=== PATIENT | female | born 1940 | race Caucasian/White ===

== ENCOUNTER 2018-10-22 11:46 | Observation (INO) ==
--- NOTE | 2018-10-22 12:22 | Emergency Department Note ---
Disposition Clinical Impression: Chest pain Qualifiers: Chest pain type: unspecified Qualified Code(s): R07.9 - Chest pain, unspecified Disposition: Admitted As Inpatient Condition: Good Time of Disposition: 18:00 General Adult HPI - General Chief complaint: ED Arrhythmia/Palpitations Stated complaint: weakness, LAUREEN, irregular HR Time Seen by Provider: 10/22/18 12:11 Source: patient Mode of arrival: ambulatory Limitations: no limitations Nursing Notes Reviewed: Yes Vital Signs Reviewed: Yes - History of Present Illness HPI Narrative: Patient history of diabetes as well as chronic kidney disease followed by nephrology with fistula to the right upper extremity that has not been used for dialysis as it is not needed at this point presents from nephrology for concern for underlying cardiac disease. Patient has had weakness and fatigue for the last 2 weeks. Patient has not had chest pain but has had exertional dyspnea as well as lightheadedness with standing. Patient has not had any previous cardiac workup. Patient has not had fevers or chills. Patient is had intermittent cough without sputum production. Symptoms occasionally were swelling flat. Patient has had no increased swelling of her lower extremities. Patient will undergo further evaluation for underlying cardiac as well as possible pulmonary pathology Pain Scale: 0 - Related Data Home Medications Medication Instructions Recorded Confirmed Clopidogrel [Plavix] 75 mg PO DAILY 05/09/16 10/22/18 Fluticasone Propionate Nasal 1 spray NS DAILY PRN 05/09/16 10/22/18 [Flonase] Loratadine [Allergy Relief] 10 mg PO DAILY PRN 05/09/16 10/22/18 Quinapril HCl [Accupril] 40 mg PO DAILY 05/09/16 10/22/18 glipiZIDE [Glucotrol] 5 mg PO BID 05/09/16 10/22/18 hydroCHLOROthiazide 25 mg PO DAILY 05/09/16 10/22/18 [Hydrochlorothiazide] Acetaminophen [Tylenol] 325 mg PO Q4H PRN 10/22/18 10/22/18 Albuterol Sulfate [Ventolin Hfa] 2 puff IH Q6H PRN 10/22/18 10/22/18 Calcitriol [Rocaltrol] 0.25 mcg PO DAILY 10/22/18 10/22/18 Cyanocobalamin (Vitamin B-12) 1,000 mcg PO DAILY 10/22/18 10/22/18 [Vitamin B12] Fenofibrate Nanocrystallized 160 mg PO DAILY 10/22/18 10/22/18 [Fenofibrate] Labetalol HCl 200 mg PO BID 10/22/18 10/22/18 hydrALAZINE [HydrALAZINE] 25 mg PO BID 10/22/18 10/22/18 Allergies Allergy/AdvReac Type Severity Reaction Status Date / Time No Known Allergies Allergy Verified 10/22/18 17:29 All systems ED: reviewed and negative except as stated. Review of Systems: As Per HPI Gastrointestinal: Denies: abdominal pain, nausea, vomiting Genitourinary: Denies: urgency, dysuria, frequency Musculoskeletal: Denies: back pain Integumentary: Denies: rash, abrasion Endocrine: Reports: fatigue Past Medical History - Past Medical History Medical history: Reports: non-contributory Surgical history: Reports: non-contributory - Social History Smoking Status: Never smoker Smokeless Tobacco Status: No Alcohol use: Reports: none Drug use: Reports: none Physical Exam General: Well appearing, nontoxic, no acute distress Head: Normocephalic Atraumatic Eyes: PERRL, EOMI ENT: Airway patent, no stridor Neck: supple, no meningismus Chest: Lungs clear to auscultation bilateral Cardiac: Regular rate and rhythm, no murmurs, rubs or gallops Abdomen: soft, nontender, nondistended; no guarding, rebound, or tenderness to percussion Musculoskeletal: Calves symmetric, nontender. Skin: No rash, normal skin tone. Fistula the right upper extremity thrill present Neuro: Alert and Oriented to person, place, and time; No obvious focal deficit. Course - Reevaluation(s) Reevaluation #1: Slight delay in laboratory values. Blood unable to be found in the lab. Patient will need CBC redrawn. 1507. I did discuss this with the patient. Patient is had exertional dyspnea that has been worsening over the last 2 weeks. Patient without specific chest pain and concern for chest pain equivalent as the patient's age and symptoms associated cardiomegaly on the MP and multiple risk factors has not had previous cardiac workup. Patient has been noted to be in bigeminy. Patient will need further telemetry as well as ACS rule out. Patient will be admitted for further investigation. Vital Signs Temperature 97.9 F 10/22/18 11:54 Pulse Rate 73 10/22/18 11:54 Respiratory Rate 18 10/22/18 11:54 Blood Pressure 108/62 10/22/18 11:54 O2 Sat by Pulse Oximetry 97 10/22/18 11:54 Temperature 97.9 F 10/22/18 20:04 Pulse Rate 88 10/22/18 20:04 Respiratory Rate 16 10/22/18 20:04 Blood Pressure 157/59 10/22/18 20:04 O2 Sat by Pulse Oximetry 96 10/22/18 20:04 Oxygen Delivery Oxygen Delivery Room Air Medical Decision Making - Lab Data Result diagrams: 10/22/18 15:05 10/22/18 12:25 Lab Results 10/22/18 10/22/18 10/22/18 Range/Units 12:25 12:25 12:25 WBC (4.3-11.1) K/mcL RBC (3.82-4.97) M/mcL Hgb (11.5-15.4) g/dL Hct (35.3-44.9) % MCV (83.0-100.0) fL MCH (28.0-33.3) pg MCHC (31.6-35.5) g/dL RDW (11.5-14.5) % Plt Count (140-400) K/mcL MPV (9.4-12.4) fL Immature Gran % (0-4) % Seg Neutrophils % % Lymphocytes % % Monocytes % % Eosinophils % % Basophils % % Neutrophils # (1.6-8.9) K/mcL Lymphocytes # (0.6-4.6) K/mcL Monocytes # (0.0-1.3) K/mcL Eosinophils # (0.0-0.6) K/mcL Basophils # (0.0-0.2) K/mcL Sodium 139 (136-145) mEq/L Potassium 4.3 (3.5-5.1) mEq/L Chloride 108 H (98-107) mEq/L Carbon Dioxide 21 L (23-29) mEq/L BUN 57 H (8-23) mg/dL Creatinine 3.12 H (0.60-1.20) mg/dL Est GFR ( Amer) 17 L (> 60) Est GFR (Non-Af Amer) 14 L (> 60) BUN/Creatinine Ratio 18 (6-26) Glucose 174 H (70-105) mg/dL Calculated Osmolality 308 H (280-300) Lactic Acid 0.8 (0.5-2.2) mmol/L Calcium 9.8 (8.6-10.3) mg/dL Troponin I < 0.03 (< 0.04) ng/mL B-Natriuretic Peptide 2267 H (Less than 100) pg/mL Urine Color (Yellow) Urine Clarity (Clear) Urine pH (5.0-8.0) pH Units Ur Specific [place] (1.010-1.025) Urine Protein (Neg-Trace) mg/dL Urine Glucose (UA) (Normal) mg/dL Urine Ketones (Negative) mg/dL Urine Blood (Negative) Urine Nitrite (Negative) Urine Bilirubin (Negative) Urine Urobilinogen (Normal) mg/dL Ur Leukocyte Esterase (Negative) Urine Microscopic RBC (0-3) per hpf Urine Microscopic WBC (0-3) per hpf Ur Squamous Epith Cells (None-Few) per lpf Urine Bacteria (None-Few) per hpf Hyaline Casts (None-Few) per lpf Ur Culture Indicated? (NO) Specimen Rejected 10/22/18 10/22/18 10/22/18 Range/Units 12:25 12:58 15:05 WBC 4.1 L (4.3-11.1) K/mcL RBC 3.04 L (3.82-4.97) M/mcL Hgb 9.7 L (11.5-15.4) g/dL Hct 30.4 L (35.3-44.9) % MCV 100.0 (83.0-100.0) fL MCH 31.9 (28.0-33.3) pg MCHC 31.9 (31.6-35.5) g/dL RDW 13.2 (11.5-14.5) % Plt Count 129 L (140-400) K/mcL MPV 11.0 (9.4-12.4) fL Immature Gran % 0.2 (0-4) % Seg Neutrophils % 54.8 % Lymphocytes % 26.9 % Monocytes % 13.7 % Eosinophils % 3.7 % Basophils % 0.7 % Neutrophils # 2.2 (1.6-8.9) K/mcL Lymphocytes # 1.1 (0.6-4.6) K/mcL Monocytes # 0.6 (0.0-1.3) K/mcL Eosinophils # 0.2 (0.0-0.6) K/mcL Basophils # 0.0 (0.0-0.2) K/mcL Sodium (136-145) mEq/L Potassium (3.5-5.1) mEq/L Chloride (98-107) mEq/L Carbon Dioxide (23-29) mEq/L BUN (8-23) mg/dL Creatinine (0.60-1.20) mg/dL Est GFR ( Amer) (> 60) Est GFR (Non-Af Amer) (> 60) BUN/Creatinine Ratio (6-26) Glucose (70-105) mg/dL Calculated Osmolality (280-300) Lactic Acid (0.5-2.2) mmol/L Calcium (8.6-10.3) mg/dL Troponin I (< 0.04) ng/mL B-Natriuretic Peptide (Less than 100) pg/mL Urine Color Yellow (Yellow) Urine Clarity Clear (Clear) Urine pH 6.0 (5.0-8.0) pH Units Ur Specific [place] 1.015 (1.010-1.025) Urine Protein 100 H (Neg-Trace) mg/dL Urine Glucose (UA) 100 H (Normal) mg/dL Urine Ketones Negative (Negative) mg/dL Urine Blood Negative (Negative) Urine Nitrite Negative (Negative) Urine Bilirubin Negative (Negative) Urine Urobilinogen Normal (Normal) mg/dL Ur Leukocyte Esterase Negative (Negative) Urine Microscopic RBC 0-3 (0-3) per hpf Urine Microscopic WBC 0-3 (0-3) per hpf Ur Squamous Epith Cells Few (None-Few) per lpf Urine Bacteria None Seen (None-Few) per hpf Hyaline Casts None Seen (None-Few) per lpf Ur Culture Indicated? NO (NO) Specimen Rejected Accident
[2018-10-22 13:01] LABS: BUN/Creatinine Ratio 18 (6-26); Blood Urea Nitrogen 57 mg/dL (8-23); Calcium 9.8 mg/dL (8.6-10.3); Carbon Dioxide 21 mEq/L (23-29); Chloride 108 mEq/L (98-107); Glucose 174 mg/dL (70-105); Osmolality,Calculated 308 (280-300); Potassium 4.3 mEq/L (3.5-5.1); Sodium 139 mEq/L (136-145); Troponin I < 0.03 ng/mL (< 0.04); eGFR For Non-African Americans 14 (> 60)
[2018-10-22 13:27] LABS: Bilirubin,Urine Negative (Negative); Blood,Urine Negative (Negative); Clarity,Urine Clear (Clear); Color,Urine Yellow (Yellow); Glucose,Urine (UA) 100 mg/dL (Normal); Ketones,Urine Negative (Negative); Leukocyte Esterase,Urine Negative (Negative); Nitrite,Urine Negative (Negative); Protein,Urine 100 mg/dL (Neg-Trace); Specific Gravity,Urine 1.015 (1.010-1.025); Urobilinogen,Urine Normal (Normal)
[2018-10-22 13:30] LABS: Bacteria,Urine None Seen per hpf (None-Few); Hyaline Casts,Urine None Seen per lpf (None-Few); RBC,Urine 0-3 per hpf (0-3); Squamous Epithelial Cell,Urine Few per lpf (None-Few); WBC,Urine 0-3 per hpf (0-3)
[2018-10-22 15:25] LABS: Basophils % 0.7 %; Eosinophils # 0.2 K/mcL (0.0-0.6); Eosinophils % 3.7 %; Hematocrit 30.4 % (35.3-44.9); Hemoglobin 9.7 g/dL (11.5-15.4); Immature Granulocytes % 0.2 % (0-4); Lymphocytes # 1.1 K/mcL (0.6-4.6); Lymphocytes % 26.9 %; Mean Corpuscular HGB Conc 31.9 g/dL (31.6-35.5); Mean Corpuscular Hemoglobin 31.9 pg (28.0-33.3); Monocytes # 0.6 K/mcL (0.0-1.3); Monocytes % 13.7 %; Neutrophils # 2.2 K/mcL (1.6-8.9); Platelet Count 129 K/mcL (140-400); Red Blood Count 3.04 M/mcL (3.82-4.97); Red Cell Distribution Width 13.2 % (11.5-14.5); Segmented Neutrophils % 54.8 %
[2018-10-22] MEDS ORDERED: *HR* Promethazine 25 MG/ML VIAL IVP PRN (15:55)
[2018-10-22] MEDS ORDERED: MOM Conc 10 ML UD.LIQ PO PRN (15:55)
[2018-10-22] MEDS ORDERED: Mag Hydrox/Al Hydrox/Simeth 30 ML UDC PO PRN (15:55)
[2018-10-22] MEDS ORDERED: traMADol 50 MG TABLET PO PRN (15:55)
[2018-10-22] MEDS ORDERED: Naloxone 0.4 MG/ML INJ IVP PRN (15:55)
[2018-10-22] MEDS ORDERED: Ondansetron 4 MG/2 ML VIAL IVP PRN (15:55)
[2018-10-22] MEDS ORDERED: Acetaminophen 325 MG TABLET PO PRN ×2 (15:55→20:04)
[2018-10-22] MEDS ORDERED: *HR* Dextrose 50 % in Water (Syg) 50 ML SYRINGE IVP PRN (15:59)
[2018-10-22] MEDS ORDERED: D5% in Water 1,000 ML IVC PRN (15:59)
[2018-10-22] MEDS ORDERED: Dextrose Gel 15 GM/37.5 ML TUBE PO PRN ×2 (15:59)
--- NOTE | 2018-10-22 16:55 | Internal Med History&Physical ---
Date of Encounter: 10/22/18 Time of Encounter: 16:53 Internal Medicine - H&P: HPI Admitted From: Home Plans for Post Hospital Care: Home History of present illness: Ms. Smith is a 78 year old female with history of diabetes as well as chronic kidney disease followed by nephrology with fistula to the right upper extremity that has not been used for dialysis as it is not needed at this point presents from nephrology for concerns of underlying cardiac disease. Patient has had weakness and fatigue for the last 2 weeks. Patient has not had chest pain but has had exertional dyspnea as well as lightheadedness with standing. Patient has not had any previous cardiac workup. Patient has not had fevers or chills. Patient is had intermittent cough without sputum production. Patient has had no increased swelling of her lower extremities. While in the ED, patient vital signs were stable, labs were significant for elevated BNP. Chest x-ray showed cardiomegaly with bilateral basilar atelectasis, no acute cardiac or pulmonary process. Patient will be admitted for further evaluation. CODE STATUS discussed with patient, she and her family wish to be full code. Past Med Surg Social Fam HX - Past Medical History Medical history: cancer, diabetes, hypertension, renal disease - Past Surgical History Surgical History: non-contributory - Social History Smoking Status: Never smoker Smokeless Tobacco Status: No Alcohol use: none Drug use: none Internal Medicine - H&P: Meds Albuterol Sulfate [Proair Hfa] 05/09/16 [History] Ciprofloxacin HCl [Cipro] 500 mg PO BID #14 tablet 05/09/16 [Rx] Clopidogrel [Plavix] 75 mg PO 05/09/16 [History] Ezetimibe [Zetia] 10 mg PO 05/09/16 [History] Fenofibrate [Lofibra] 160 mg PO 05/09/16 [History] Fluticasone Propionate Nasal [Flonase] 50 mcg NS 05/09/16 [History] Hydralazine HCl 25 mg PO 05/09/16 [History] Hydrocodone Bit/Homatrop Me-Br [Hydrocodone-Homatropine Syrup] 5 ml PO 05/09/16 [History] Labetalol HCl 200 mg PO 05/09/16 [History] Loratadine [Allergy Relief] 10 mg PO 05/09/16 [History] [place]-3 Fatty Acids [Fish Oil] 300 mg PO 05/09/16 [History] Omeprazole 05/09/16 [History] Phenazopyridine HCl [Pyridium] 200 mg PO TIDAC #6 tab 05/09/16 [Rx] Quinapril HCl [Accupril] 40 mg PO 05/09/16 [History] glipiZIDE [Glucotrol] 5 mg PO 05/09/16 [History] hydroCHLOROthiazide [Hydrochlorothiazide] 25 mg PO 05/09/16 [History] Allergy/AdvReac Type Severity Reaction Status Date / Time No Known Allergies Allergy Verified 05/09/16 18:49 All Systems PM: A 10-system review of systems was performed and is negative for pertinent findings except as documented above in the HPI. Review of systems: REVIEW OF SYSTEMS: CONSTITUTIONAL: No weight loss, fever, chills, see HPI. HEENT: Eyes: No visual loss, blurred vision, double vision or yellow sclerae. Ears, Nose, Throat: No hearing loss, sneezing, congestion, runny nose or sore throat. SKIN: No rash or itching. CARDIOVASCULAR: No chest pain, chest pressure or chest discomfort. No palpitations or edema. RESPIRATORY: see HPI. GASTROINTESTINAL: No anorexia, nausea, vomiting or diarrhea. No abdominal pain or blood. GENITOURINARY: No dysuria, urgency, or frequency. NEUROLOGICAL: No headache, dizziness, syncope, paralysis, ataxia, numbness or tingling in the extremities. No change in bowel or bladder control. MUSCULOSKELETAL: No muscle, back pain, joint pain or stiffness. HEMATOLOGIC: No anemia, bleeding or bruising. LYMPHATICS: No enlarged nodes. No history of splenectomy. PSYCHIATRIC: No history of depression or anxiety. ENDOCRINOLOGIC: No reports of sweating, cold or heat intolerance. No polyuria or polydipsia. - Constitutional Vitals: Temp Pulse Resp BP Pulse Ox 97.9 F 84 17 165/44 100 10/22/18 12:14 10/22/18 14:12 10/22/18 13:16 10/22/18 14:12 10/22/18 14:12 General appearance: Present: A&O X 3 Exam: PHYSICAL EXAMINATION: GENERAL APPEARANCE: The patient is alert, oriented and in no acute distress. HEENT: Head is normocephalic. The sinuses are nontender. Pupils are equal and reactive. The nares are patent. Oropharynx clear without lesions. NECK: Supple without lymphadenopathy. HEART: Regular rate and rhythm. LUNGS: bilateral crackles up to the mid-lung zone. ABDOMEN: Soft, nontender, nondistended with good bowel sounds heard. Inguinal area is normal. EXTREMITIES: Without cyanosis, clubbing or edema. NEUROLOGICAL: Gross nonfocal. SKIN: Warm and dry without any rash. Internal Med - H&P Results - Labs CBC & Chem 7: 10/22/18 15:05 10/22/18 12:25 Labs: Short CBC 10/22/18 Range/Units 15:05 WBC 4.1 L (4.3-11.1) K/mcL Hgb 9.7 L (11.5-15.4) g/dL Hct 30.4 L (35.3-44.9) % Plt Count 129 L (140-400) K/mcL Neutrophils # 2.2 (1.6-8.9) K/mcL BMP 10/22/18 12:25 Sodium 139 Potassium 4.3 Chloride 108 H Carbon Dioxide 21 L BUN 57 H Creatinine 3.12 H Glucose 174 H Calcium 9.8 Cardiac Enzymes 10/22/18 Range/Units 12:25 Troponin I < 0.03 (< 0.04) ng/mL Urine 10/22/18 Range/Units 12:58 Urine Color Yellow (Yellow) Urine Clarity Clear (Clear) Urine pH 6.0 (5.0-8.0) pH Units Ur Specific [place] 1.015 (1.010-1.025) Urine Protein 100 H (Neg-Trace) mg/dL Urine Glucose (UA) 100 H (Normal) mg/dL - Impressions ITS Impressions Chest X-Ray 10/22/18 12:10 IMPRESSION: Cardiomegaly, with left basilar atelectasis. No other acute cardiopulmonary process identified. D/ / Don Bruce MD / Don Bruce MD Interpreting Provider: Don Bruce MD - Assessment and Plan (1) Weakness Current Visit: Yes Status: Acute Assessment and plan: 78-year-old female with medical history of CKD stage IV, chronic anemia, diabetes mellitus, hypertension, COPD presented with two-week history of generalized weakness and dyspnea on exertion. I reviewed the medical record, she recently had some lab done which showed normal TSH, normal vitamin B12 level, slightly elevated folate level, normal iron study, hemoglobin A1c 5.6, and significantly elevated PTH level. Her lab upon admission showed a chronic anemia with baseline H/H, significantly elevated BMP, slightly above baseline creatinine. Her rn dialysis was concerned that the patient might have cardiac disease. Echocardiogram and a stress test ordered. May consult cardiology if indicated. (2) Dyspnea Current Visit: Yes Status: Acute Assessment and plan: Patient has history of COPD, she takes bronchodilators at home at a as needed basis. On physical exam, bilateral crackles can be appreciated up to the midlung zone. Labs showed significantly elevated BNP, chest x-ray showed cardiomegaly with bibasilar atelectasis. Patient has history of CKD stage IV, she currently still produces urine. She is on HCTZ at home. We will obtain echocardiogram in the morning. May consult nephrology to assist in diuresis if indicated. Qualifiers: Dyspnea type: dyspnea on exertion Qualified Code(s): R06.09 - Other forms of dyspnea (3) CKD (chronic kidney disease) stage 4, GFR 15-29 ml/min Current Visit: No Status: Chronic Assessment and plan: Cr slightly above baseline, will consult nephrology. (4) HTN (hypertension) Current Visit: No Status: Chronic Assessment and plan: Blood pressure was controlled currently, continue home medications. Qualifiers: Hypertension type: unspecified Qualified Code(s): I10 - Essential (primary) hypertension (5) Diabetes mellitus Current Visit: No Status: Chronic Assessment and plan: Blood glucose was well controlled, recent hemoglobin A1c 5.6, started patient on insulin sliding scale. 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 Qualifiers: COPD type: unspecified COPD Qualified Code(s): J44.9 - Chronic obstructive pulmonary disease, unspecified (7) Secondary hyperparathyroidism Current Visit: No Status: Chronic Assessment and plan: Renal following. (8) Chronic anemia Current Visit: No Status: Chronic Assessment and plan: Normal iron study, normal TSH and folate. Likely secondary to CKD. Renal following. (9) DVT prophylaxis Current Visit: Yes Status: Acute Assessment and plan: Heparin subcutaneous. - Time Spent With Patient Total time spent is greater than 50% in coordination of care (as documented) at patient's floor/unit and/or counseling patient: Greater than 35 minutes
[2018-10-22] MEDS: Insulin LISPRO 300 UNITS/3 ML VIAL SQ SCH ×2 (18:50→21:02)
[2018-10-22] MEDS ORDERED: Loratadine 10 MG TABLET PO PRN (20:09)
[2018-10-22] MEDS ORDERED: Fluticasone Propionate Nasal 50 MCG/SPRAY BOTTLE NS PRN (20:09)
[2018-10-22] MEDS: hydroCHLOROthiazide 25 MG TABLET PO SCH (21:29)
[2018-10-22] MEDS: Lisinopril 20 MG TABLET PO SCH (21:29)
[2018-10-22] MEDS: hydrALAZINE 25 MG TABLET PO SCH (21:29)
[2018-10-23 01:19] LABS: Basophils % 0.6 %; Eosinophils # 0.2 K/mcL (0.0-0.6); Eosinophils % 3.1 %; Hematocrit 30.2 % (35.3-44.9); Hemoglobin 9.4 g/dL (11.5-15.4); Immature Granulocytes % 0.2 % (0-4); Lymphocytes # 1.1 K/mcL (0.6-4.6); Lymphocytes % 22.1 %; Mean Corpuscular HGB Conc 31.1 g/dL (31.6-35.5); Mean Corpuscular Hemoglobin 30.8 pg (28.0-33.3); Monocytes # 0.7 K/mcL (0.0-1.3); Monocytes % 13.8 %; Neutrophils # 2.9 K/mcL (1.6-8.9); Platelet Count 141 K/mcL (140-400); Red Blood Count 3.05 M/mcL (3.82-4.97); Red Cell Distribution Width 13.2 % (11.5-14.5); Segmented Neutrophils % 60.2 %
[2018-10-23 01:39] LABS: Albumin/Globulin Ratio 2.4 (1.1-2.2); Bilirubin,Total 0.6 mg/dL (0.3-1.0); Calcium 9.8 mg/dL (8.6-10.3); Globulin 1.7 g/dL (2.4-3.5); Phosphorous 3.7 mg/dL (2.7-4.5); Potassium 4.2 mEq/L (3.5-5.1); Total Protein 5.7 g/dL (6.4-8.9)
[2018-10-23] MEDS ORDERED: Regadenoson 0.4 MG/5 ML SYRINGE IVP ONE (06:28)
--- NOTE | 2018-10-23 10:15 | Internal Med Progress Note ---
Hospitalist Progress Note - Encounter Date of Encounter: 10/23/18 Time of Encounter: 10:15 - Subjective Interval History: Patient was seen and examined at bedside currently denies any pain or discomfort she is requesting to eat she did undergo a nuclear stress test this a.m. awaiting results at this time. - Exam Vitals: Temp Pulse Resp BP Pulse Ox 98.1 F 56 18 165/52 93 10/23/18 07:23 10/23/18 07:23 10/23/18 07:23 10/23/18 07:23 10/23/18 07:23 Exam: PHYSICAL EXAMINATION: GENERAL APPEARANCE: The patient is alert, oriented and in no acute distress. HEENT: Head is normocephalic. The sinuses are nontender. Pupils are equal and reactive. The nares are patent. Oropharynx clear without lesions. NECK: Supple without lymphadenopathy. HEART: Regular rate and rhythm. LUNGS: bilateral crackles up to the mid-lung zone. ABDOMEN: Soft, nontender, nondistended with good bowel sounds heard. Inguinal area is normal. EXTREMITIES: Without cyanosis, clubbing or edema. NEUROLOGICAL: Gross nonfocal. SKIN: Warm and dry without any rash. - Assessment and Plan (1) Weakness Current Visit: Yes Status: Acute Assessment and Plan: 78-year-old female with medical history of CKD stage IV, chronic anemia, diabetes mellitus, hypertension, COPD presented with two-week history of generalized weakness and dyspnea on exertion. Chronic anemia-appears to be around baseline Concerned for cardiac disease underwent cardiac stress test which did show p artially fixed [id number] intensity perfusion defect involving the distal inferior and apical segments. Effusions worse unstressed and rest with normal wall motion no perfusion evidence for infarct cannot rule out reversible ischemia Cardiac echo Impressions: Sinus rhythm with PVCs. LVEF 65%. LV diastolic dysfunction with elevated filling pressures. Normal LV chamber size, wall thickness and function. Normal right ventricular size and systolic function. Bi-atrial enlargement. Mild-moderate mitral regurgitation. Mild-moderate tricuspid regurgitation. Severe pulmonary hypertension. Cardiology consultation (2) Dyspnea Current Visit: Yes Status: Acute Assessment and Plan: Patient has history of COPD, she takes bronchodilators at home at a as needed basis. On physical exam, bilateral crackles can be appreciated up to the midlung zone. Labs showed significantly elevated BNP, chest x-ray showed cardiomegaly with bibasilar atelectasis. Patient has history of CKD stage IV, she currently still produces urine. She is on HCTZ at home. We will obtain echocardiogram in the morning. May consult nephrology to assist in diuresis if indicated. (3) CKD (chronic kidney disease) stage 4, GFR 15-29 ml/min Current Visit: No Status: Chronic (4) HTN (hypertension) Current Visit: No Status: Chronic (5) Diabetes mellitus Current Visit: No Status: Chronic (6) COPD (chronic obstructive pulmonary disease) Current Visit: No Status: Chronic (7) DVT prophylaxis Current Visit: Yes Status: Acute (8) Secondary hyperparathyroidism Current Visit: No Status: Chronic (9) Chronic anemia Current Visit: No Status: Chronic - Time Spent with Patient Total time spent is greater than 50% in coordination of care (as documented) at patient's floor/unit and/or counseling patient: Internal Medicine: Result - Labs CBC & Chem 7: 10/23/18 00:56 10/23/18 00:56 Labs: Short CBC 10/22/18 10/23/18 Range/Units 15:05 00:56 WBC 4.1 L 4.8 (4.3-11.1) K/mcL Hgb 9.7 L 9.4 L (11.5-15.4) g/dL Hct 30.4 L 30.2 L (35.3-44.9) % Plt Count 129 L 141 (140-400) K/mcL Neutrophils # 2.2 2.9 (1.6-8.9) K/mcL BMP 10/22/18 10/23/18 12:25 00:56 Sodium 139 140 Potassium 4.3 4.2 Chloride 108 H 108 H Carbon Dioxide 21 L 20 L BUN 57 H 55 H Creatinine 3.12 H 3.07 H Glucose 174 H 128 H Calcium 9.8 9.8 Cardiac Enzymes 10/22/18 10/23/18 Range/Units 12:25 06:36 Troponin I < 0.03 0.03 (< 0.04) ng/mL Liver Function 10/23/18 Range/Units 00:56 Total Bilirubin 0.6 (0.3-1.0) mg/dL AST 17 (13-39) Units/L ALT 11 (7-52) Units/L Alkaline Phosphatase 25 L (34-104) Units/L Albumin 4.0 (3.5-5.7) g/dL Urine 10/22/18 Range/Units 12:58 Urine Color Yellow (Yellow) Urine Clarity Clear (Clear) Urine pH 6.0 (5.0-8.0) pH Units Ur Specific [place] 1.015 (1.010-1.025) Urine Protein 100 H (Neg-Trace) mg/dL Urine Glucose (UA) 100 H (Normal) mg/dL - Impressions Impressions Chest X-Ray 10/22/18 12:10 IMPRESSION: Cardiomegaly, with left basilar atelectasis. No other acute cardiopulmonary process identified. 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
[2018-10-23] MEDS: Insulin LISPRO 300 UNITS/3 ML VIAL SQ SCH ×4 (10:39→20:49)
[2018-10-23] MEDS: Lisinopril 20 MG TABLET PO SCH (10:40)
[2018-10-23] MEDS: hydrALAZINE 25 MG TABLET PO SCH ×2 (10:41→20:31)
[2018-10-23] MEDS: Cyanocobalamin (B-12) 1,000 MCG TABLET PO SCH (10:41)
[2018-10-23] MEDS: hydroCHLOROthiazide 25 MG TABLET PO SCH (10:41)
[2018-10-23] MEDS: Fenofibrate 54 MG TABLET PO SCH (10:41)
--- NOTE | 2018-10-23 12:18 | Nephrology Consult Note ---
Date of Encounter: 10/24/18 Time of Encounter: 10:50 Assessment and Plan (1) CKD (chronic kidney disease) stage 4, GFR 15-29 ml/min Status: Chronic She reported that she has known chronic kidney disease stage IV (nearly stage V). She said she was seeing her outpatient sheet taker Dr. Chinchilla yesterday, who sent her into the emergency department because of fatigue. I will request medical records as her primary sheet taker / group no longer rounds on their patients when hospitalized at [facility]. She said that her baseline renal function has been in this range for quite some time, and about a month ago she underwent a right forearm AV fistula placement in preparation for potential dialysis in the coming weeks to months. She reported feeling much better after receiving some gentle IV fluids last night, and she did not affirm having uremic symptoms. So I do not recommend initiation of dialysis during this admission, but she should closely follow up with her existing sheet taker. She is at the point that her primary sheet taker should recommend referral for a Fistula First. I recommend following a renal protective sure to GI as able, including strict I's and O's, daily weights, avoidance of nephrotoxic agents, and renal dosing. Thank you (2) HTN (hypertension) Status: Chronic In more advanced stages of CKD, renal tubule function is impaired such that HCTZ is not as efficacious as compared to pt's without normal renal function, and in general for Nephrology pt's in stage IV CKD I recommend converting HCTZ to a loop diuretic such as lasix. When used a lowere dosing Lasix can be effective and there will be lower serum uric acid levels as compared to thiazide type diuretics in pt's with CKD. She will need her serum K+ monitored and renal function assessed soon after this admission. She should follow up with her primary sheet taker. Discussed with the Hospitalist. 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 Continue home Rx. (4) Chronic anemia Status: Chronic Goal Hgb is 10-11. Will monitor. History of Present Illness - Reason for Consult Consult date: 10/23/18 Chronic Kidney Disease Requesting physician: Chauncey Benz - Chief Complaint Known CKD stage IV - History of Present Illness The patient is a very pleasant 78-year-old female with a past medical history of chronic kidney disease stage IV, anemia, secondary hyperpara thyroidism and etc. The [facility] group was consulted because she was admitted and found to have chronic kidney disease. She said that she was being seen her primary sheet taker Dr. Ramos who recently semiretired; and, she said he instructed her to go to the emergency department because she had fatigue. She was not found to have worsening renal function and she was not found to have hyperkalemia. On my interview and exam, she did not affirm having recent nausea, vomiting, diarrhea, diminished appetite, or other uremic symptoms. She affirmed that she was not taking NSAIDs. She was accompanied by her family who helped supplemental history. She reported no recent IV contrast exposures in terms of no recent CTs or LHCs at other facilities. When asked about an AV fistula, she voiced no knowledge of this, and so this suggests she has never been recommended for a Fistula First. Past Med Surg Social Fam HX - Past Medical History Medical history: cancer, diabetes, hypertension, renal disease Psychiatric history: no psych history - Past Surgical History Surgical History: hysterectomy Additional surgical history: stents to kidney - Social History Smoking Status: Never smoker Smokeless Tobacco Status: No Alcohol use: none Drug use: none - Family History Mother Living Status: Age at : 70 Cause of : mi Hx Family Cardiac Disorders: Yes Medications and Allergies Clopidogrel [Plavix] 75 mg PO DAILY 05/09/16 [History] Fluticasone Propionate Nasal [Flonase] 1 spray NS DAILY PRN 05/09/16 [History] Loratadine [Allergy Relief] 10 mg PO DAILY PRN 05/09/16 [History] Quinapril HCl [Accupril] 40 mg PO DAILY 05/09/16 [History] glipiZIDE [Glucotrol] 5 mg PO BID 05/09/16 [History] Acetaminophen [Tylenol] 325 mg PO Q4H PRN 10/22/18 [History] Albuterol Sulfate [Ventolin Hfa] 2 puff IH Q6H PRN 10/22/18 [History] Calcitriol [Rocaltrol] 0.25 mcg PO DAILY 10/22/18 [History] Cyanocobalamin (Vitamin B-12) [Vitamin B12] 1,000 mcg PO DAILY 10/22/18 [History] Fenofibrate Nanocrystallized [Fenofibrate] 160 mg PO DAILY 10/22/18 [History] hydrALAZINE [HydrALAZINE] 25 mg PO BID 10/22/18 [History] Atorvastatin [Lipitor] 40 mg PO HS #30 tablet 10/23/18 [Rx] Isosorbide MONOnitrate (24 HR) [Imdur] 30 mg PO DAILY #30 tab.er.24h 10/23/18 [Rx] Furosemide [Lasix] 20 mg PO DAILY #30 tablet 10/24/18 [Rx] Labetalol [Trandate] 250 mg PO BID #60 tablet 10/24/18 [Rx] Allergy/AdvReac Type Severity Reaction Status Date / Time No Known Allergies Allergy Verified 10/22/18 17:29 Review of Systems All Systems: reviewed and no additional remarkable complaints except as stated Exam - Vital Signs Vital signs: Initial Vital Signs Temp Pulse Resp BP Pulse Ox 97.9 F 73 18 108/62 97 10/22/18 11:54 10/22/18 11:54 10/22/18 11:54 10/22/18 11:54 10/22/18 11:54 Vital Signs - Last 8 Hours Temp Pulse Resp BP Pulse Ox 10/23/18 11:30 97.6 F 72 16 185/71 94 10/23/18 07:23 98.1 F 56 18 165/52 93 Intake and Output 10/22/18 10/23/18 10/23/18 23:59 07:59 15:59 Other: # Voids 1 Weight 74.5 kg 67.8 kg Blood Glucose* 133 199 Patient Weight 10/23/18 23:59 Weight 67.8 kg - General Appearance General appearance: well-developed, well-nourished, appears started age, obese EENT: ATNC, PERRL, mucous membranes moist Neck: supple Respiratory: clear Cardiology: no edema, regular rate, regular rhythm, normal S1, normal S2 - Dialysis Access Dialysis Vascular Access: Arteriovenous Fistula (right forearm AVF) thrill: Yes bruit: Yes Gastrointestinal: normoactive bowel sounds, no tenderness, no guarding Integumentary: warm and dry Neurologic: no focal deficit, no asterixis, alert and oriented x3 Musculoskeletal: no deformities, no erythema, no cyanosis Psychiatric: mood/affect appropriate, cooperative Results - Lab Results 10/23/18 00:56 10/24/18 06:41 Most recent lab results 10/23/18 00:56 Calcium 9.8 Phosphorus 3.7 Magnesium 2.0 Consult Discharge Plan - Plan Instructions: Labetalol (By mouth), Furosemide (By mouth), Isosorbide Mononitrate (By mouth), Atorvastatin (By mouth), Chest Pain (DC) Referrals: Corinna Blue MD [Primary Care Provider] - (Appointment has been requested.) Faustino Banerjee DO [Non-Partnered Physician] - 11/12/18 8:00 am () Josué Estrada DO [Partnered Physician] - (Appointment has been requested.) Prescriptions: Isosorbide MONOnitrate (24 HR) [Imdur] 30 mg PO DAILY #30 tab.er.24h Furosemide [Lasix] 20 mg PO DAILY #30 tablet Atorvastatin [Lipitor] 40 mg PO HS #30 tablet Labetalol [Trandate] 250 mg PO BID #60 tablet
--- NOTE | 2018-10-23 12:23 | Electrocardiograph Report ---
[facility] Test Date: 2018-10-22 Pat Name: Huong Smith Department: [id number] Room: 3B33 Gender: F Cupola Liner: : 1940 Requested By: Tonio Hawkins Order Number: [id number] Reading MD: Fidencio Greco Measurements Intervals [place] Rate: 81 P: 66 MO: 189 QRS: 15 QRSD: 98 T: 56 QT: 416 QTc: 433 Interpretive Statements Sinus rhythm Ventricular bigeminy Probable anterior infarct, old Electronically Signed On 10-23-2018 12:21:51 EDT by Fidencoi Greco
--- NOTE | 2018-10-23 13:53 | Event Note ---
Date of Encounter: 10/23/18 Time of Encounter: 13:46 Discussed findings of stress test with Kenyatta Dominguez. Partially reversible, small inferior defect described on stress test, cannot exclude ischemia. Gated EF is normal. Given age, CKD stage IV and small size of defect, risk to benefit ratio is unfavorable. It is reasonable to trial medical therapy. If refractory symptoms that are believed to be cardiac, then LHC could be considered in the future. Please call if any questions or concerns. Thanks, Josué Estrada DO, FACC
--- NOTE | 2018-10-23 14:33 | Discharge Summary ---
- NOTES TO OUTPATIENT PROVIDER Notes to Outpatient Provider: l need follow-up with cardiology-had mildly abnormal stress test patient opted for medical management. Follow-up with nephrology. Did have ectopy- will need Holter monitor as outpatient follow-up with cardiology Orders not resulted at time of discharge: Pending orders 10/23/18 07:41 NM pérez perf SPECT multi [NM] Routine Date of Encounter: 10/24/18 Time of Encounter: 12:14 - Discharge Diagnosis (1) Weakness Priority: Primary Status: Acute (2) Dyspnea Priority: Primary Status: Acute Qualifiers: Dyspnea type: dyspnea on exertion Qualified Code(s): R06.09 - Other forms of dyspnea (3) CKD (chronic kidney disease) stage 4, GFR 15-29 ml/min Priority: Secondary Status: Chronic (4) HTN (hypertension) Priority: Secondary Status: Chronic Qualifiers: Hypertension type: unspecified Qualified Code(s): I10 - Essential (primary) hypertension (5) Diabetes mellitus Priority: Secondary Status: Chronic Qualifiers: Diabetes mellitus type: type 2 Diabetes mellitus chcf insulin use: without terminal worker use Diabetes mellitus complication status: with kidney complications Diabetes mellitus complication detail: with chronic kidney disease Chronic kidney disease stage: stage 4 (severe) Qualified Code(s): E11.22 - Type 2 diabetes mellitus with diabetic chronic kidney disease; N18.4 - Chronic kidney disease, stage 4 (severe) (6) COPD (chronic obstructive pulmonary disease) Priority: Secondary Status: Chronic Qualifiers: COPD type: unspecified COPD Qualified Code(s): J44.9 - Chronic obstructive pulmonary disease, unspecified (7) Secondary hyperparathyroidism Priority: Secondary Status: Chronic (8) Chronic anemia Priority: Secondary Status: Chronic Hospital course: Ms. Smith is a 78 year old female astragal history of diabetes as well as CKG stage IV who follows with Dr Taylor nephrology with fistula to right upper extremity that has not been accessed and was recently placed approximately month ago. Presented to nephrology yesterday with complaints of weakness fatigue for the past 2 weeks no chest pain exertional dyspnea. Nephrology was concerned for cardiac pathology -patient has not had a previous cardiac workup recommended inpatient be evaluated. On presentation to the ER lab work did show a elevated BNP troponins were negative 3 x-ray with cardiomegaly and bilateral basilar atelectasis. EKG did show some ectopy-bigeminy and frequent PVCs. Lab work was unremarkable. Patient did undergo a cardiac stress test which did show partially reversible small inferior defect cannot exclude ischemia. Discussed findings with Dr. Estrada cardiology-as well as reviewed options with the patient including left heart catheter in medical management. Patient would like to pursue medical management at this time also reviewed frequent PVCs and bigeminy with Drs. Freeman cardiology-recommending outpatient Holter monitor increasing labetalol. Discussed renal function with nephrology who recommends placing patient on Lasix and discontinue hydrochlorothiazide. Patient can follow-up with nephrology as outpatient. Patient's creatinine did improve after Lasix we will monitor lab work as outpatient Patient will be discharged with beta mya Imdur Plavix statin and Lasix. I patient home with primary care provider as well as nephrology and cardiology she verbalizes understanding - Time Spent with Patient Total time spent providing and/or coordinating discharge services: - Discharge Medications Prescriptions: New Isosorbide MONOnitrate (24 HR) [Imdur] 30 mg PO DAILY #30 tab.er.24h Atorvastatin [Lipitor] 40 mg PO HS #30 tablet Labetalol [Trandate] 250 mg PO BID #60 tablet Furosemide [Lasix] 20 mg PO DAILY #30 tablet Continued Quinapril HCl [Accupril] 40 mg PO DAILY Loratadine [Allergy Relief] 10 mg PO DAILY PRN PRN Reason: Allergy Symptoms glipiZIDE [Glucotrol] 5 mg PO BID Fluticasone Propionate Nasal [Flonase] 1 spray NS DAILY PRN PRN Reason: Allergy Symptoms Clopidogrel [Plavix] 75 mg PO DAILY Acetaminophen [Tylenol] 325 mg PO Q4H PRN PRN Reason: Pain Albuterol Sulfate [Ventolin Hfa] 2 puff IH Q6H PRN PRN Reason: Shortness Of Breath Calcitriol [Rocaltrol] 0.25 mcg PO DAILY Cyanocobalamin (Vitamin B-12) [Vitamin B12] 1,000 mcg PO DAILY Fenofibrate Nanocrystallized [Fenofibrate] 160 mg PO DAILY hydrALAZINE [HydrALAZINE] 25 mg PO BID Discontinued hydroCHLOROthiazide [Hydrochlorothiazide] 25 mg PO DAILY Labetalol HCl 200 mg PO BID Home Medications: Clopidogrel [Plavix] 75 mg PO DAILY 05/09/16 [History] Fluticasone Propionate Nasal [Flonase] 1 spray NS DAILY PRN 05/09/16 [History] Loratadine [Allergy Relief] 10 mg PO DAILY PRN 05/09/16 [History] Quinapril HCl [Accupril] 40 mg PO DAILY 05/09/16 [History] glipiZIDE [Glucotrol] 5 mg PO BID 05/09/16 [History] Acetaminophen [Tylenol] 325 mg PO Q4H PRN 10/22/18 [History] Albuterol Sulfate [Ventolin Hfa] 2 puff IH Q6H PRN 10/22/18 [History] Calcitriol [Rocaltrol] 0.25 mcg PO DAILY 10/22/18 [History] Cyanocobalamin (Vitamin B-12) [Vitamin B12] 1,000 mcg PO DAILY 10/22/18 [History] Fenofibrate Nanocrystallized [Fenofibrate] 160 mg PO DAILY 10/22/18 [History] hydrALAZINE [HydrALAZINE] 25 mg PO BID 10/22/18 [History] Atorvastatin [Lipitor] 40 mg PO HS #30 tablet 10/23/18 [Rx] Isosorbide MONOnitrate (24 HR) [Imdur] 30 mg PO DAILY #30 tab.er.24h 10/23/18 [Rx] Furosemide [Lasix] 20 mg PO DAILY #30 tablet 10/24/18 [Rx] Labetalol [Trandate] 250 mg PO BID #60 tablet 10/24/18 [Rx] Allergies/Adverse Reactions: Allergy/AdvReac Type Severity Reaction Status Date / Time No Known Allergies Allergy Verified 10/22/18 17:29 Date of admission: 10/22/18 16:12 Primary care physician: Corinna Blue Consults: 10/22/18 17:14 Consult to Nephrology [CONS] Routine Consulting Provider: Kidney Mercedez/GELA/JOHNY/SHELTON Reason for Consult: CKD Call Completed: Yes Discharging clinician: Kenyatta Dominguez Anticipated date of discharge: 10/24/18 - Constitutional Vitals: Temp Pulse Resp BP Pulse Ox 97.6 F 72 16 185/71 94 10/23/18 11:30 10/23/18 11:30 10/23/18 11:30 10/23/18 11:30 10/23/18 11:30 General appearance: Present: A&O X 3 Exam: Skin: Free of rash and discoloration. Eyes: Sclera is white. There is no discharge from eyes. ENMT: Oral/pharyngeal mucosa is normal in appearance. There is no discharge from nose or ears. Respiratory: Normal breath sounds with no crackles and wheezes bilaterally. CV: Heart is regular with no gallop or murmur. GI: Abdomen is flat and soft with no palpable mass or visceromegaly. : There is no tenderness in patient's flanks bilaterally. Neuro exam: He has good strength in upper and lower extremities. He has normal eye movements. Psychiatric: He has normal affect. His thought process is appropriate to the situation. . - Patient Status Disposition: Home, Self-Care Condition: Good Functional capacity at discharge: independent ambulation Overall status at discharge: patient is back to baseline - Ambulatory Orders Ambulatory Orders: Basic Metabolic Panel [CHEM] Time Frame: 10/29/18, Facility: [facility], Location: Lab - Discharge Instructions Instructions: Chest Pain (DC) Follow Up With: Corinna Blue MD [Primary Care Provider] - (Appointment has been requested.) Faustino Banerjee DO [Non-Partnered Physician] - 11/12/18 8:00 am () Josué Estrada DO [Partnered Physician] - (Appointment has been requested.) - Diet and Activity Activity: increase activity as tolerated Diet: other
--- NOTE | 2018-10-23 16:28 | Internal Med Progress Note ---
Hospitalist Progress Note - Encounter Date of Encounter: 10/23/18 Time of Encounter: 11:00 - Subjective Interval History: Patient was seen and examined earlier this morning currently denies any chest pain or shortness of breath she did undergo cardiac stress test which did show partially fixed [id number] intensity perfusion defect involving the distal inferior and apical segments perfusions worsening stress and rest with normal wall motion. Discussed findings with Dr. Estrada cardiology given the patient's age CKD stage IV and small sized defect risk to benefit ratio is unfavorabe- discussed findings with the patient discussing risk and benefits of L HC as well as medical management patient would like to pursue medical management at this t counts include [facility] beds at the [facility] and follow up with cardiology as outpatient. - Exam Vitals: Temp Pulse Resp BP Pulse Ox 97.6 F 72 16 185/71 94 10/23/18 11:30 10/23/18 11:30 10/23/18 11:30 10/23/18 11:30 10/23/18 11:30 Exam: . - Assessment and Plan (1) Weakness Current Visit: Yes Status: Acute Assessment and Plan: 78-year-old female with medical history of CKD stage IV, chronic anemia, diabetes mellitus, hypertension, COPD presented with two-week history of generalized weakness and dyspnea on exertion. I reviewed the medical record, she recently had some lab done which showed normal TSH, normal vitamin B12 level, slightly elevated folate level, normal iron study, hemoglobin A1c 5.6, and significantly elevated PTH level. Her lab upon admission showed a chronic anemia with baseline H/H, significantly elevated BMP, slightly above baseline creatinine. 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 Echocardiogram mpressions: Sinus rhythm with PVCs. LVEF 65%. LV diastolic dysfunction with elevated filling pressures. Normal LV chamber size, wall thickness and function. Normal right ventricular size and systolic function. Bi-atrial enlargement. Mild-moderate mitral regurgitation. Mild-moderate tricuspid regurgitation. Severe pulmonary hypertension. Cardiac stress Impression: Partially fixed, mild to moderate intensity perfusion defect involving the distal inferior and apical segments. Perfusion is worse on stress than rest with normal wall motion. No perfusion evidence for infarct. Cannot rule out reversible ischemia. Pharmacologic stress ECG is negative for ischemia at level of heart rate achieved. Frequent PVCS and occasional ventricular couplets during testing. Gated EF > 70%. Discussed findings with Dr. Estrada cardiology given the patient's age CKD stage IV and small sized defect risk to benefit ratio is unfavorabe-discussed findings with the patient discussing risk and benefits of L HC as well as medical management patient would like to pursue medical management at this time and follow up with cardiology as outpatient. -Medical management continue with Plavix we will add statin continue beta mya we will add Imdur She does have some bigeminy we will continue to monitor check EKG in a.m. as well as lab work (2) Dyspnea Current Visit: Yes Status: Acute Assessment and Plan: Patient has history of COPD, she takes bronchodilators at home at a as needed basis. On physical exam, lung sounds clear edema at this time and patient states she had a DNR prior to presentation Labs showed significantly elevated BNP, chest x- ray showed cardiomegaly with bibasilar atelectasis. Patient is on 12.5 a hydrochlorothiazide which is not an effective diuretic in stage IV CkD we will transition to loop diuretic and monitor Nephrology has been consulted and appreciate recommendations Cardiac echo Impressions: Sinus rhythm with PVCs. LVEF 65%. LV diastolic dysfunction with elevated filling pressures. Normal LV chamber size, wall thickness and function. Normal right ventricular size and systolic function. Bi-atrial enlargement. Mild-moderate mitral regurgitation. Mild-moderate tricuspid regurgitation. Severe pulmonary hypertension. (3) CKD (chronic kidney disease) stage 4, GFR 15-29 ml/min Current Visit: No Status: Chronic Assessment and Plan: Cr slightly above baseline, improved today Patient is on hydrochlorothiazide which is not effective in stage IV CJD we will switch to a loop diuretic and monitor labs Nephrology consult and appreciate recommendations Monitor intake output daily weights avoid nephrotoxins (4) HTN (hypertension) Current Visit: No Status: Chronic Assessment and Plan: Blood pressure was controlled currently, continue home medications. Discontinue hydrochlorothiazide and Lasix We will add Imdur (5) Diabetes mellitus Current Visit: No Status: Chronic Assessment and Plan: Blood glucose was well controlled, recent hemoglobin A1c 5.6, started patient on insulin sliding scale. (6) COPD (chronic obstructive pulmonary disease) Current Visit: No Status: Chronic Assessment and Plan: Continue home nebulizer. (7) Secondary hyperparathyroidism Current Visit: No Status: Chronic Assessment and Plan: Renal following. (8) Chronic anemia Current Visit: No Status: Chronic Assessment and Plan: Normal iron study, normal TSH and folate. Likely secondary to CKD. Renal following. - Time Spent with Patient Total time spent is greater than 50% in coordination of care (as documented) at patient's floor/unit and/or counseling patient: Internal Medicine: Result - Labs CBC & Chem 7: 10/23/18 00:56 10/23/18 00:56 Labs: Short CBC 10/23/18 Range/Units 00:56 WBC 4.8 (4.3-11.1) K/mcL Hgb 9.4 L (11.5-15.4) g/dL Hct 30.2 L (35.3-44.9) % Plt Count 141 (140-400) K/mcL Neutrophils # 2.9 (1.6-8.9) K/mcL BMP 10/23/18 00:56 Sodium 140 Potassium 4.2 Chloride 108 H Carbon Dioxide 20 L BUN 55 H Creatinine 3.07 H Glucose 128 H Calcium 9.8 Cardiac Enzymes 10/23/18 Range/Units 06:36 Troponin I 0.03 (< 0.04) ng/mL Liver Function 10/23/18 Range/Units 00:56 Total Bilirubin 0.6 (0.3-1.0) mg/dL AST 17 (13-39) Units/L ALT 11 (7-52) Units/L Alkaline Phosphatase 25 L (34-104) Units/L Albumin 4.0 (3.5-5.7) g/dL - Impressions Impressions Echocardiogram 10/22/18 15:58 Impressions: Sinus rhythm with PVCs. LVEF 65%. LV diastolic dysfunction with elevated filling pressures. Normal LV chamber size, wall thickness and function. Normal right ventricular size and systolic function. Bi-atrial enlargement. Mild-moderate mitral regurgitation. Mild-moderate tricuspid regurgitation. Severe pulmonary hypertension. Left Ventricular Wall Motion: Rest Echo Findings All wall segments showed normal motion. Findings: Study Quality * Technically adequate exam. ECG Findings * Sinus rhythm with PVCs. Left Ventricle * LVEF 65%. * LV diastolic dysfunction with elevated filling pressures. * Normal LV chamber size, wall thickness and function. Right Ventricle * Normal right ventricular size and systolic function. Left Atrium * Severely dilated left atrium. Right Atrium * Moderately dilated right atrium. Aortic Valve * No aortic regurgitation. * Trileaflet aortic valve. * No aortic stenosis. Mitral Valve * Mild calcification of subvalvular apparatus. * Mild-moderate mitral regurgitation. * No mitral stenosis. Tricuspid Valve * Mild-moderate tricuspid regurgitation. * Tricuspid valve not well visualized. * Estimated RA pressure is 20 mmHg. * Estimated RVSP is 73 mmHg. * Severe pulmonary hypertension. Pulmonic Valve * Pulmonic valve is not well visualized. * No pulmonic stenosis. * No pulmonic regurgitation. Pulmonary Artery * Pulmonary artery not well visualized. Aorta * Normally sized aortic root. Pericardium * There is no pericardial effusion present. Interatrial Septum * No evidence of PFO by color Doppler. IVC * The IVC is dilated. * < 50% respiratory change. Consult Discharge Plan - Plan Referrals: Corinna Bleu MD [Primary Care Provider] - (Appointment has been requested.) Faustino Banerjee DO [Non-Partnered Physician] - (Please call and schedule an appointment within 2 weeks after discharge. ) Josué Estrada DO [Partnered Physician] - (Appointment has been requested.) Prescriptions: Isosorbide MONOnitrate (24 HR) [Imdur] 30 mg PO DAILY #30 tab.er.24h Atorvastatin [Lipitor] 40 mg PO HS #30 tablet (2) Dyspnea Qualifiers: Dyspnea type: dyspnea on exertion Qualified Code(s): R06.09 - Other forms of dyspnea (4) HTN (hypertension) Qualifiers: Hypertension type: unspecified Qualified Code(s): I10 - Essential (primary) hypertension (5) Diabetes mellitus Qualifiers: Diabetes mellitus type: type 2 Diabetes mellitus manager intermediate insulin use: without retirement use Diabetes mellitus complication status: with circulatory complication (6) COPD (chronic obstructive pulmonary disease) Qualifiers: COPD type: unspecified COPD Qualified Code(s): J44.9 - Chronic obstructive pulmonary disease, unspecified
[2018-10-23] MEDS: Isosorbide MONOnitrate (24 HR) 30 MG TAB.ER.24H PO SCH (16:45)
[2018-10-23] MEDS: Furosemide 20 MG TABLET PO SCH (16:45)
[2018-10-23] MEDS ORDERED: Melatonin 3 MG TABLET PO PRN (16:49)
[2018-10-24] MEDS: hydrALAZINE 25 MG TABLET PO SCH (07:32)
[2018-10-24] MEDS: Isosorbide MONOnitrate (24 HR) 30 MG TAB.ER.24H PO SCH (07:32)
[2018-10-24] MEDS: Insulin LISPRO 300 UNITS/3 ML VIAL SQ SCH ×2 (07:32→11:57)
[2018-10-24] MEDS: Furosemide 20 MG TABLET PO SCH (07:32)
[2018-10-24] MEDS: Cyanocobalamin (B-12) 1,000 MCG TABLET PO SCH (07:33)
[2018-10-24] MEDS: Fenofibrate 54 MG TABLET PO SCH (07:33)
[2018-10-24] MEDS: Lisinopril 20 MG TABLET PO SCH (07:33)
[2018-10-24 08:36] LABS: Calcium 9.6 mg/dL (8.6-10.3); Potassium 4.2 mEq/L (3.5-5.1)
[2018-10-24] MEDS ORDERED: Isosorbide MONOnitrate (24 HR) 30 MG TAB.ER.24H PO SCH (09:00)
--- NOTE | 2018-10-24 09:16 | Electrocardiograph Report ---
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
[2018-10-24 11:00] VITALS: BP 121/55
== END 2018-10-24 15:21 | disposition home or self-care (01) ==
LOC: 3BNU 11:46 → EMEROOARM 11:46 → 3BNU 17:04
PROVIDERS: ADMIT Internal Medicine Nephrology; ATTEND Internal Medicine Nephrology